=== PATIENT | male | born 1960 | race African-American/Black ===

== ENCOUNTER 2016-09-18 12:46 | Emergency (ER) | payer OTHER ==
[~2016-09-18] VITALS: Ht 188 cm; Wt 117.9 kg
[2016-09-18 13:08] VITALS: BP 146/84
--- NOTE | 2016-09-18 13:15 | ED INFLUENZA/URI COMPLAINT ---
History of Present Illness General Chief Complaint: Upper Respiratory Sx/Fever Stated Complaint: COUGH, CONGESTION, DALTON Source: patient Exam Limitations: no limitations Vital Signs & Intake/Output Vital Signs & Intake/Output Vital Signs Date Time Temp Pulse Resp B/P Pulse O2 O2 Flow FiO2 Ox Delivery Rate 09/18 1308 99.5 80 18 146/84 97 Room Air Allergies Coded Allergies: NO KNOWN ALLERGIES (02/06/12) Reconcile Medications Amoxicillin/Potassium Clav (Augmentin 875-125 Tablet) 875 MG-125 MG TABLET 1 TAB PO BID sinus Benzonatate 200 MG CAPSULE 1 CAP PO TID PRN cough Methylprednisolone. (Medrol) 4 MG TAB.DS.PK 1 DP PO AD sinus inflammation Triage Note: C/O DRY COUGH, SNEEZING, HEADACHE X 4 DAYS. Triage Nurses Notes Reviewed? yes HPI: Patient is a 55 year old male presents complaining of nasal congestion, head pressure, cough since Wednesday. Patient reports his son was sick on Wednesday with similar symptoms. Head pressure is moderate. Took Excedrin and mucinex yesterday with moderate relief then symptoms returned. Rhinorrhea is clear. Cough is nonproductive. Denies dyspnea, fevers. Past History Travel History Traveled to [place] past 21 day No Medical History Any Pertinent Medical History? none Neurological: NONE Gastrointestinal: NONE Renal: NONE Musculoskeletal: NONE Psychiatric: NONE Endocrine: NONE Surgical History Surgical History: non-contributory Psychosocial History What is your primary language Occitan Tobacco Use: Never used ETOH Use: occasional use Family History Hx Contributory? No Review of Systems Review of Systems Constitutional: Denies: chills, fever. EENTM: Reports: nasal congestion. Denies: ear pain, throat pain. Respiratory: Reports: cough. Denies: short of breath, wheezing. Cardiovascular: Denies: chest pain. GI: Denies: abdominal pain, nausea, vomiting. Genitourinary: Reports: no symptoms. Musculoskeletal: Reports: no symptoms. Skin: Reports: no symptoms. Neurological/Psychological: Reports: headache. Hematologic/Endocrine: Reports: no symptoms. Immunologic/Allergic: Reports: no symptoms. Physical Exam Physical Exam General Appearance: well developed/nourished, alert, awake Head: atraumatic, normal appearance Ears, Nose, Throat: CLEAR FLUID POSTERIOR TO BILATERAL TYMPANIC MEMBRANES. cLEAR RHINORRHEA. MILDLY SWOLLEN NASAL TURBINATES BILATERALLY Neck: normal inspection, supple, full range of motion, NO PALPABLE LYMPHADENOPATHY Respiratory: normal breath sounds, chest non-tender, no respiratory distress, lungs clear Cardiovascular: regular rate/rhythm Back: normal inspection, normal range of motion Extremities: normal inspection, normal capillary refill, normal range of motion Neurologic/Psych: no motor/sensory deficits, awake, alert, oriented x 3, normal gait, normal mood/affect Skin: intact, normal color, warm/dry Lymphatic: no anterior cervical jessi Core Measures Severe Sepsis Present: No Septic Shock Present: No Progress Differential Diagnosis: influenza, meningitis, otitis, pneumonia, pharyngitis, sinusitis Plan of Care: Patient nontoxic appearing. Positive sick contact, appears viral in etiology. Appears stable for discharge. Labs and imaging deferred. Initial ED EKG: none Departure Departure Time of Disposition: 1327 Disposition: HOME OR SELF CARE Condition: Stable Clinical Impression Primary Impression: Sinusitis Qualifiers: Sinusitis location: unspecified location Chronicity: acute Recurrence: non-recurrent Qualified Code: J01.90 - Acute sinusitis, unspecified Referrals: KEERTHI ELLER APRN (PCP/Family) Additional Instructions: Drink plenty of fluids and rest. Follow up with your primary care provider if no improvement within 3-5 days. Your symptoms appear viral. I would not recommend starting the Augmentin antibiotic unless your nasal secretions are turning green, you develop fevers, or your condition is significantly worsening. Return to the ER if difficulty breathing, unable to stay hydrated or worsening of symptoms. Departure Forms: Customer Survey General Discharge Information Prescriptions: Current Visit Scripts Amoxicillin/Potassium Clav (Augmentin 875-125 Tablet) 1 TAB PO BID #20 TAB Methylprednisolone. (Medrol) 1 DP PO AD #1 DP Benzonatate 1 CAP PO TID PRN cough #30 CAP
[2016-09-18] MEDS ORDERED: BENZONATATE200 M1 PO (13:30)
[2016-09-18] MEDS ORDERED: AUGMENTIN 875-1 EACH PO (13:30)
[2016-09-18] MEDS ORDERED: MEDROL4 M2 PO (13:30)
== END 2016-09-18 13:52 ==
LOC: ERH 12:46
DX: J32.9 Chronic sinusitis, unspecified (principal)

== ENCOUNTER 2017-10-09 11:11 | Observation (INO) | payer OTHER ==
[~2017-10-09] VITALS: Ht 188 cm; Wt 120.2 kg
[~2017-10-09 11:11] MED LIST: AUGMENTIN 875-1 EACH PO; BENZONATATE200 M1 PO; CYCLOBENZAPRINE10 M1 PO; MEDROL4 M2 PO
--- NOTE | 2017-10-09 11:39 | ED GI/GU/ABDOMINAL COMPLAINT ---
History of Present Illness General Chief Complaint: Abdominal Pain/Flank Pain Stated Complaint: SEVERE ABD PAIN Source: patient, old records Exam Limitations: no limitations Vital Signs & Intake/Output Vital Signs & Intake/Output Vital Signs Date Time Temp Pulse Resp B/P B/P Pulse O2 O2 Flow FiO2 Mean Ox Delivery Rate 10/09 1800 98.2 64 19 132/59 99 Room Air 10/09 1640 98.7 74 24 125/86 99 Room Air 10/09 1452 98.0 68 18 119/59 100 Room Air 10/09 1115 97.6 72 20 137/89 99 Room Air Allergies Coded Allergies: NO KNOWN ALLERGIES (02/06/12) Reconcile Medications No Known Home Medications Triage Note: PT TO ED C/O LOWER ABD CRAMPING SINCE THIS AM. DENIES N/V/D. STATES PAIN COMES AND GOES. Triage Nurses Notes Reviewed? yes HPI: 56M PMH appendectomy 3 years ago presenting with acute onset of severe crampy lower abdominal pain since this morning. Pain started abruptly and has been constant, 10/10, radiates longitudinally along lower abdomen. No similar pain before, no trauma or inciting event. Denies fever, chills, chest pain, SOB, diarrhea, dysuria. No abnormal food intake. No history of a-fib or arrhythmia. Past History Travel History Traveled to [place] past 21 day No Medical History Any Pertinent Medical History? 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 No Review of Systems Review of Systems Constitutional: Reports: no symptoms. EENTM: Reports: no symptoms. Respiratory: Reports: no symptoms. Cardiovascular: Reports: no symptoms. GI: Reports: see HPI. Genitourinary: Reports: no symptoms. Musculoskeletal: Reports: no symptoms. Skin: Reports: no symptoms. Neurological/Psychological: Reports: no symptoms. Hematologic/Endocrine: Reports: no symptoms. Immunologic/Allergic: Reports: no symptoms. All Other Systems: Reviewed and Negative Physical Exam Physical Exam General Appearance: well developed/nourished, moderate distress Head: atraumatic, normal appearance Eyes: Bilateral: normal appearance. Ears, Nose, Throat, Mouth: moist mucous membrane Neck: normal inspection, supple, full range of motion Respiratory: normal breath sounds, chest non-tender, no respiratory distress Cardiovascular: regular rate/rhythm Gastrointestinal: tense, diffusely tender abdomen worse in lower abdomen, bowel sounds intact Back: normal inspection, normal range of motion Extremities: normal range of motion Neurologic/Psych: awake, alert, oriented x 3, normal mood/affect Skin: intact, normal color, warm/dry Core Measures ACS in differential dx? No Sepsis Present: No Sepsis Focused Exam Completed? No Progress Differential Diagnosis: AAA, AMI, appendicitis, biliary colic, bowel obstruction , colon cancer, cholecystitis, diverticulitis, epididymitis, esophageal varices, gastritis, hepatitis, hernia, hemorrhoids, ischemic bowel, inflamm bowel dis, Nighat-Carlito tear, orchitis, pancreatitis, prostatitis, peptic ulcer, PUD/GERD, perforated viscous, pyelonephritis, SBO, STD, testicular torsion, ureterolithiasis, urinary retention, urethritis, UTI/pyelo Plan of Care: Orders Procedure Date/time Status Regular Diet 10/10 B Active Nothing by Mouth 10/10 B Active LACTIC ACID 10/09 2215 Active LACTIC ACID 10/[address] in observation 10/09 1918 Active ED Holding Orders 10/09 1918 Active Vital Signs 10/09 1918 Active Code Status 10/09 1918 Active LACTIC ACID 10/09 1800 Complete LACTIC ACID 10/09 1446 Complete TROPONIN LEVEL 10/09 1146 Complete LIPASE 10/09 1146 Complete LACTIC ACID 10/09 1146 Complete COMPREHENSIVE METABOLIC PANEL 10/09 1146 Complete CBC WITHOUT DIFFERENTIAL 10/09 1146 Complete EKG 10/09 1146 Active Current Medications Sig/Sunil Start time Last Medication Dose Stop Time Status Admin Metoclopramide HCl 10 MG ONCE ONE 10/09 1914 UNVr (Reglan) 10/09 1915 Sodium Chloride 1,000 ML BOLUS ONE 10/09 1914 UNVr (Normal Saline 0.9%) 10/09 2013 Laboratory Tests 10/09/17 1800: Lactic Acid 3.1 H 10/09/17 1451: Lactic Acid 2.0 10/09/17 1150: Anion Gap 18 H, Estimated GFR > 60, BUN/Creatinine Ratio 18.6, Glucose 99, Lactic Acid 3.0 H, Calcium 9.8, Total Bilirubin 0.7, AST 36, ALT 21, Alkaline Phosphatase 53, Troponin I < 0.01, Total Protein 8.6 H, Albumin 5.2 H, Globulin 3.4, Albumin/Globulin Ratio 1.5, Lipase 140, CBC w Diff NO MAN DIFF REQ , RBC 5.04, MCV 90.7, MCH 29.9, MCHC 32.9 L, RDW 13.5, MPV 9.2, Gran % 68.6, Lymphocytes % 21.3, Monocytes % 7.6, Eosinophils % 2.3, Basophils % 0.2, Absolute Granulocytes 3.9, Absolute Lymphocytes 1.2, Absolute Monocytes 0.4, Absolute Eosinophils 0.1, Absolute Basophils 0 Feels much better after fluids and Zofran. Diagnostic Imaging: Viewed by Me: CT Scan. Discussed w/RAD: CT Scan. Radiology Impression: PATIENT: JOSE HARTMAN PRESENT AGE: 56 PATIENT ACCOUNT NO: [id number] : 60 LOCATION: [facility] ORDERING PHYSICIAN: Akash Miller MD SERVICE DATE: 10/09/17 EXAM TYPE: CAT - CT ABD & PELVIS W IV CONTRAST EXAMINATION: CT ABDOMEN AND PELVIS WITH CONTRAST CLINICAL INFORMATION: Severe lower abdominal pain with vomiting. Rule out small bowel obstruction, infarct or hernia. COMPARISON: CT scan of the abdomen and pelvis dated 10/23/2013. TECHNIQUE: Multidetector CT volumetric acquisition of the abdomen and pelvis was performed after the administration of 90 mL of intravenous Optiray 320. The data set was reformatted in the sagittal and coronal planes and reviewed on an independent workstation. DLP: 964.90 mGy-cm. FINDINGS: LOWER CHEST: Mild dependent atelectatic changes are seen in the lung bases bilaterally. LIVER, GALLBLADDER, BILIARY TREE: Liver normal size and attenuation. No focal cystic or solid mass or intra-or extrahepatic ductal dilatation. Hepatic and portal veins patent. Gallbladder partially distended and within normal limits. PANCREAS: Normal. No ductal dilatation, mass, or surrounding stranding. SPLEEN: Normal size and appearance. Splenic vein patent. ADRENAL GLANDS AND KIDNEYS: Adrenal glands normal. Kidneys bilaterally symmetric in size and function. No focal mass, hydronephrosis, nephrolithiasis or perinephric stranding. URETERS AND BLADDER: Ureters decompressed and within normal limits. Bladder partially distended and within normal limits. PELVIC ORGANS: Unremarkable. GASTROINTESTINAL TRACT: Some fullness is seen at the GE junction, raising the question of a small hiatal hernia. Mild fluid distention of bowel loops is seen without abnormal air-fluid levels or bowel wall thickening or edema seen. Large bowel loops decompressed. A few scattered descending and sigmoid colonic diverticula are seen with no evidence of acute diverticulitis. The patient is status post appendectomy. ABDOMINAL WALL: There is a small fat-containing umbilical hernia. LYMPHOVASCULAR STRUCTURES: Abdominal aorta normal in caliber. No periaortic collections. No abdominal or pelvic adenopathy or free fluid collection. BONES: Small sclerotic bone island is seen in the left iliac bone. Moderate degenerative spurring and sclerosis is seen at the upper sacroiliac joints. Moderate vertebral spondylosis is seen in the lower thoracic spine. IMPRESSION: 1. Mild nonspecific fluid distention of small bowel loops is seen, which may be within normal limits or may be associated with subtle gastroenteritis in the correct clinical setting. No evidence of bowel obstruction, bowel infarct or hernia. 2. Mild colonic diverticulosis with no evidence of acute diverticulitis. 3. Small fat-containing umbilical hernia. DICTATED BY: Zully FLORES,Sharlene Lawrence DATE/TIME DICTATED:10/09/171334 CHARGE MASTER SPECIALIST:JAIRO DATE/TIME TRANSCRIBED:10/09/171334 Pre-Hospital EKG: none Initial ED EKG: normal sinus rhythm, no ST T wave changes Departure Departure Disposition: HOME OR SELF CARE Condition: Stable Clinical Impression Primary Impression: Acute gastroenteritis Secondary Impressions: Dehydration, Lactic acidosis Referrals: Marci Reaves APRN (PCP/Family) Additional Instructions: Stay well hydated. Eat as you can tolerate, try to start with BRAT diet ( bananas, rice, applesauce, toast). If your symptoms persist or worsen, return to emergency department. Departure Forms: Customer Survey General Discharge Information Prescriptions: Current Visit Scripts No Known Home Medications Observation Note Spoke With: Ninfa Carvajal MD Physician Advisor Notified: LOLIS MAC DO Place Patient In: Non-ED OBS Care Area Rationale for Observation: My rational for observation is as follows ACUTE GASTROENTERITIS WITH RISING LACTATE DESPITE IV FLUIDS, CAN BE PLACED IN OBSERVATION FOR HYDRATION AND SERIAL LACTATE, IV ZOFRAN, POSSIBLE SURGICAL CONSULT, LIKELY BE DISCHARGED ONCE SYMPTOMS REMIT AND LACTATE FALLS WITHIN 48 HOURS.
[2017-10-09 12:10] LABS: ABSOLUTE BASOPHIL COUNT 0 /CUMM (0.0-0.2); ABSOLUTE EOSINOPHIL COUNT 0.1 /CUMM (0.0-0.7); ABSOLUTE GRANULOCYTE CT 3.9 /CUMM (1.4-6.5); ABSOLUTE LYMPH COUNT 1.2 /CUMM (1.2-3.4); ABSOLUTE MONOCYTE COUNT 0.4 /CUMM (0.10-0.60); BASOPHIL % 0.2 % (0.0-2.0); EOSINOPHIL % 2.3 % (0-5); GRANULOCYTE % 68.6 % (42.2-75.2); HEMATOCRIT 45.8 % (42-52); MEAN CORPUSCULAR HGB 29.9 PG (27.0-31.0); MEAN CORPUSCULAR HGB CONC 32.9 G/DL (33.0-37.0); MEAN CORPUSCULAR VOLUME 90.7 FL (80.0-94.0); MEAN PLATELET VOLUME 9.2 FL (7.4-10.4); PLATELET COUNT 222 /CUMM (130-400); RBC DISTRIBUTION WIDTH 13.5 % (11.5-14.5); RED BLOOD CELL CT 5.04 /CUMM (4.70-6.10); WHITE BLOOD CELL COUNT 5.7 /CUMM (4.8-10.8)
--- NOTE | 2017-10-09 13:51 | CT SCAN REPORT ---
EXAMINATION: CT ABDOMEN AND PELVIS WITH CONTRAST CLINICAL INFORMATION: Severe lower abdominal pain with vomiting. Rule out small bowel obstruction, infarct or hernia. COMPARISON: CT scan of the abdomen and pelvis dated 10/23/2013. TECHNIQUE: Multidetector CT volumetric acquisition of the abdomen and pelvis was performed after the administration of 90 mL of intravenous Optiray 320. The data set was reformatted in the sagittal and coronal planes and reviewed on an independent workstation. DLP: 964.90 mGy-cm. FINDINGS: LOWER CHEST: Mild dependent atelectatic changes are seen in the lung bases bilaterally. LIVER, GALLBLADDER, BILIARY TREE: Liver normal size and attenuation. No focal cystic or solid mass or intra-or extrahepatic ductal dilatation. Hepatic and portal veins patent. Gallbladder partially distended and within normal limits. PANCREAS: Normal. No ductal dilatation, mass, or surrounding stranding. SPLEEN: Normal size and appearance. Splenic vein patent. ADRENAL GLANDS AND KIDNEYS: Adrenal glands normal. Kidneys bilaterally symmetric in size and function. No focal mass, hydronephrosis, nephrolithiasis or perinephric stranding. URETERS AND BLADDER: Ureters decompressed and within normal limits. Bladder partially distended and within normal limits. PELVIC ORGANS: Unremarkable. GASTROINTESTINAL TRACT: Some fullness is seen at the GE junction, raising the question of a small hiatal hernia. Mild fluid distention of bowel loops is seen without abnormal air-fluid levels or bowel wall thickening or edema seen. Large bowel loops decompressed. A few scattered descending and sigmoid colonic diverticula are seen with no evidence of acute diverticulitis. The patient is status post appendectomy. ABDOMINAL WALL: There is a small fat-containing umbilical hernia. LYMPHOVASCULAR STRUCTURES: Abdominal aorta normal in caliber. No periaortic collections. No abdominal or pelvic adenopathy or free fluid collection. BONES: Small sclerotic bone island is seen in the left iliac bone. Moderate degenerative spurring and sclerosis is seen at the upper sacroiliac joints. Moderate vertebral spondylosis is seen in the lower thoracic spine. IMPRESSION: 1. Mild nonspecific fluid distention of small bowel loops is seen, which may be within normal limits or may be associated with subtle gastroenteritis in the correct clinical setting. No evidence of bowel obstruction, bowel infarct or hernia. 2. Mild colonic diverticulosis with no evidence of acute diverticulitis. 3. Small fat-containing umbilical hernia.
--- NOTE | 2017-10-09 19:45 | History & Physical ---
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
[2017-10-09 22:44] VITALS: BP 118/80
--- NOTE | 2017-10-10 02:14 | History & Physical ---
Jenn FLORES,[facility] 10/10/17 0214: General Information and HPI MD Statement: I have seen and personally examined JOSE MONSON and documented this H&P. The patient is a 56 year old M who presented with a patient stated chief complaint of [severe abdominal pain]. Source of Information: patient, old records Exam Limitations: no limitations History of Present Illness: Mr. Monson is 56 year old male with no significant past medical history who presented to ED with chief complaint of abdominal pain. 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 He denied lifting any heavy objects, denied nausea, vomiting , diarrhea or constipation. Patient denied any history of sick contact, eating from outside. Last bowel movement was this morning normal. He came to the ED for evaluation and reported vomiting after receiving IV morphine. Patient denied upper respiratory tract infection symptoms, denied history of hernia or any abdominal mass or bulging. He had appendectomy in 2013, baseline colonoscopy in 2011 with suggested follow up 10 years later. 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 EENTM: Denies: blurred vision, nasal pain. Cardiovascular: Denies: palpitations. Respiratory: Denies: cough, orthopnea, short of breath. GI: Denies: constipation, diarrhea, nausea, bloody stool, changes in stool, vomiting. Genitourinary: Denies: hematuria. Musculoskeletal: Denies: joint pain, muscle pain. Exam & Diagnostic Data Last 24 Hrs of Vital Signs/I&O Vital Signs Date Time Temp Pulse Resp B/P B/P Pulse O2 O2 Flow FiO2 Mean Ox Delivery Rate 10/094 98.3 63 18 118/80 97 10/09 2054 98.6 72 19 128/62 99 Room Air 10/09 1800 98.2 64 19 132/59 99 Room Air 10/09 1640 98.7 74 24 125/86 99 Room Air 10/09 1452 98.0 68 18 119/59 100 Room Air 10/09 1115 97.6 72 20 137/89 99 Room Air Intake & Output 10/10 0800 10/10 0000 10/09 1600 Intake Total 1999 1999 Output Total 200 Balance 1999 1800 Intake, IV 1999 1999 Output, 200 Emesis Patient 120.202 kg 120.202 kg Weight Weight Estimated Measurement Method Physical Exam General Appearance Alert, Oriented X3, Cooperative, No Acute Distress Skin No Rashes, No Breakdown, No Significant Lesion Skin Temp/Moisture Exam: Warm/Dry HEENT Atraumatic, PERRLA, EOMI, Mucous Membr. moist/pink Neck Supple Cardiovascular Regular Rate, Normal S1, Normal S2, No Murmurs Lungs Clear to Auscultation, Normal Air Movement Abdomen Normal Bowel Sounds, Soft, No Tenderness, No Hepatospenomegaly, No Masses Neurological Normal Gait, Normal Speech, Strength at 5/5 X4 Ext, Normal Tone, Sensation Intact, Cranial Nerves 3-12 NL, Reflexes 2+ Extremities No Clubbing, No Cyanosis, No Edema, Normal Pulses, No Tenderness/ Swelling Last 24 Hrs of Labs/Sim: Laboratory Tests 10/09/17 2215: Lactic Acid Cancelled 10/09/17 2100: Lactic Acid Cancelled 10/09/17 1933: Lactic Acid 1.6 10/09/17 1800: Lactic Acid 3.1 H 10/09/17 1451: Lactic Acid 2.0 10/09/17 1150: Anion Gap 18 H, Estimated GFR > 60, BUN/Creatinine Ratio 18.6, Glucose 99, Lactic Acid 3.0 H, Calcium 9.8, Total Bilirubin 0.7, AST 36, ALT 21, Alkaline Phosphatase 53, Troponin I < 0.01, Total Protein 8.6 H, Albumin 5.2 H, Globulin 3.4, Albumin/Globulin Ratio 1.5, Lipase 140, CBC w Diff NO MAN DIFF REQ , RBC 5.04, MCV 90.7, MCH 29.9, MCHC 32.9 L, RDW 13.5, MPV 9.2, Gran % 68.6, Lymphocytes % 21.3, Monocytes % 7.6, Eosinophils % 2.3, Basophils % 0.2, Absolute Granulocytes 3.9, Absolute Lymphocytes 1.2, Absolute Monocytes 0.4, Absolute Eosinophils 0.1, Absolute Basophils 0 Diagnostic Data Other Results CT abdomen and pelvis with IV contrast IMPRESSION: 1. Mild nonspecific fluid distention of small bowel loops is seen, which may be within normal limits or may be associated with subtle gastroenteritis in the correct clinical setting. No evidence of bowel obstruction, bowel infarct or hernia. 2. Mild colonic diverticulosis with no evidence of acute diverticulitis. 3. Small fat-containing umbilical hernia. Assessment/Plan Assessment: Mr. Monson is 56 year old male with no significant past medical history who presented to ED with chief complaint of abdominal pain. Problem list #Abdominal pain probably gastroenteritis #Lactic acidosis Plan -Obsessive in general medical floor -Vitals every shift -Start full liquid diet -CBC, BEP and lactic acid in a.m. -Last lactic acid is 1.6, will hold off IV fluid -Pain management -DVT prophylaxis Lovenox -Code full As Ranked By This Provider Problem List: 1. Acute gastroenteritis 2. Lactic acidosis Core Measures/Misc (05/23) Acute Coronary Syndrome ACS Diagnosis: No Congestive Heart Failure Congestive Heart Failure Diagnosis No Cerebrovascular Accident CVA/TIA Diagnosis: No VTE (View Protocol) VTE Risk Factors Age>40 No Mechanical VTE Prophylaxis d/t N/A MechProphylax Ordered No VTE Pharm Prophylaxis d/t NA PharmProphylax ordered Sepsis (View protocol) Sepsis Present: No Observation Initial Note - I have personally examined JOSE MONSON on 10/10/17 at 0329. 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 Had nausea and had one vomiting in ER, nonbloody. The pain was similar to his appendicitis pain, he asked his cousin "if appendix can grow back after surgery ", Patient does not have any diarrhea or constipation had bowel movement this morning but has not been passing gas. Not been able to pass gas worried him so he came to ER. No fever or chills. Complete ROS unremarkable Vitals: T max 98.7, pulse 72, RR 20, blood pressure 137/89, saturating 99% on room air On exam: A O 3, cooperative, no acute distress, neck supple, JVD normal, no lymphadenopathy, mucosa moist, no focal neurological deficit, no dependent edema , no obvious skin rashes or inflammation CVS: S1-S2, RRR. RS: Clear to auscultate bilaterally. Abdomen: Soft, no tenderness or guarding even on deep palpation, ND, bowel sounds present. Labs: WBC 5.7, hemoglobin 15.1, hematocrit 45.8, platelets 222, sodium 143, potassium 5.0, chloride 101, bicarbonate 24, BUN 13, creatinine 0.7, glucose 99, calcium 9.8, lactate 3.0, LFT unremarkable, troponin 0.01, total protein 8.6, albumin 5.2, globulin 3.4, lipase 140 CT abdomen and pelvis with IV contrast: 1. Mild nonspecific fluid dist will ention of small bowel loops is seen, which may be within normal limits or may be associated with subtle gastroenteritis in the correct clinical setting. No evidence of bowel obstruction, bowel infarct or hernia. 2. Mild colonic diverticulosis with no evidence of acute diverticulitis. 3. Small fat-containing umbilical hernia. Assessment and plan 56-year-old male with no significant past medical history and S/P appendectomy 2013 presented in ER for acute onset severe right lower quadrant pain, sharp, nonradiating, no relieving factors. Had nausea and had one vomiting in ER, nonbloody. Patient does not have any diarrhea or constipation had bowel movement this morning but has not been passing gas. On examination in ER patient was tender in right lower quadrant, and had mild lactic acidosis, otherwise labs and vitals unremarkable. CT finding showed possible mild nonspecific fluid collection around small bowel loops possibly enteritis. There is no suspicion for small bowel obstruction, bowel infarct. Patient received aggressive hydration and pain medication in ER and his pain was resolved by the time we saw the patient, there is no tenderness even on deep palpation. Patient is placed in observation for lactic acidosis. + Right lower quadrant abdominal pain + Lactic acidosis - Place in observation and general medicine - Saline locked IV (patient received adequate hydration in ER, lactate trending down) - Repeat lactate 6 AM - Serial abdominal examination - Adequate pain control - Advance diet with clears - DVT prophylaxis
[2017-10-10 07:06] VITALS: BP 122/74
--- NOTE | 2017-10-10 09:13 | Patient Discharge Instructions ---
Discharge Instructions General Discharge Information Special Instructions: - Please follow up with your primary care physician within 1-2 week of discharge. Inform your primary care physician of this admission to [facility]. - Continue your current medications per discharge instructions. - Please watch for these problems: Fever, Chills, Nausea, Vomiting, Shortness of Breath, Productive Cough, Chest Pain/Discomfort, Abdominal Pain, Active Bleeding or Bloody urine/stool. Diet Continue normal diet: Yes Activity Full Activity/No Limits: Yes Acute Coronary Syndrome Inclusion Criteria At DC or during hospital stay patient has or had the following: ACS DIAGNOSIS No Discharge Core Measures Meds if any: Prescribed or Continued at Discharge Meds if any: NOT Prescribed or Continued at Discharge Congestive Heart Failure Inclusion Criteria At DC or during hospital stay patient has or had the following: CHF DIAGNOSIS No Discharge Core Measures Meds if any: Prescribed or Continued at Discharge Meds if any: NOT Prescribed or Continued at Discharge Cerebrovascular accident Inclusion Criteria At DC or during hospital stay patient has or had the following: CVA/TIA Diagnosis No Discharge Core Measures Meds if any: Prescribed or Continued at Discharge Meds if any: NOT Prescribed or Continued at Discharge Venous thromboembolism Inclusion Criteria VTE Diagnosis No VTE Type NONE VTE Confirmed by (Test) NONE Discharge Core Measures - Per Current guidelines, there needs to be overlap - treatment for the first 5 days of Warfarin therapy. - If discharged on Warfarin prior to 5 days of - overlap therapy, the patient will need to be - assessed for post discharge needs including - *Post discharge parental anticoagulation - *Warfarin and/or parental anticoagulation education - *Follow up date to check INR post discharge At least 5 days overlap therapy as Inpatient No Meds if any: Prescribed or Continued at Discharge Note: Overlap Therapy is Warfarin and Anticoagulant Meds if any: NOT Prescribed or Continued at Discharge
[2017-10-10 09:26] LABS: ABSOLUTE BASOPHIL COUNT 0 /CUMM (0.0-0.2); ABSOLUTE EOSINOPHIL COUNT 0.1 /CUMM (0.0-0.7); ABSOLUTE LYMPH COUNT 1.1 /CUMM (1.2-3.4); ABSOLUTE MONOCYTE COUNT 0.2 /CUMM (0.10-0.60); BASOPHIL % 0.4 % (0.0-2.0); EOSINOPHIL % 3.2 % (0-5); GRANULOCYTE % 66.1 % (42.2-75.2); MEAN CORPUSCULAR HGB 30.9 PG (27.0-31.0); MEAN CORPUSCULAR HGB CONC 34.3 G/DL (33.0-37.0); MEAN CORPUSCULAR VOLUME 90.2 FL (80.0-94.0); MEAN PLATELET VOLUME 9.8 FL (7.4-10.4); PLATELET COUNT 145 /CUMM (130-400); RBC DISTRIBUTION WIDTH 13.3 % (11.5-14.5); WHITE BLOOD CELL COUNT 4.5 /CUMM (4.8-10.8)
--- NOTE | 2017-10-10 10:32 | PN- Att Addend ---
Attending Addendum Attending Brief Note Patient seen and examined. He feels completely well. His eating his breakfast and walking all over the unit. On exam his blood pressure is 120/70, pulse is 76, his breathing at 16-18 and is afebrile at 98.6. Awake alert oriented, lungs are clear to auscultation, heart is S1-S2 regular, abdomen is soft he has no tenderness no rebound no guarding and no appreciable hepatosplenomegaly. No edema. Labs reviewed and his lactate has come down nicely and stayed below 2. He is a 56-year-old with no past medical history is brought in for observation for right lower quadrant pain and a lactic acidosis. Aggressively hydrated and treated in the ER. Probable gastroenteritis that has resolved. At this point I think he is safe to be discharged today. He knows to follow-up at [facility] within 7-10 days.
[2017-10-10 10:51] LABS: HEMATOCRIT 35.1 % (42-52)
== END 2017-10-10 13:23 ==
LOC: ERH 11:11 → ERHI 19:19 → 2NA 19:19 → ENRESERV 20:30 → ENTRNSPT 22:15 → 2NA 22:36 → CMPTRNSPT 22:41 → ENPENDDIS 10-10 10:23 → 2NA 10-10 13:23
PROVIDERS: Internal Medicine; Student in an Organized Health Care Education/Training Program
DX: R10.31 Right lower quadrant pain (principal); Z87.891 Personal history of nicotine dependence; E87.2 Acidosis; R11.2 Nausea with vomiting, unspecified
CPT/HCPCS: 36415; 74177; 82436; 93005; 93010; 96361; 96374; 96375; 96376; J1650; J2405; J2765